=== PATIENT | female | born 1960 | race Caucasian/White ===

== ENCOUNTER → 2021-07-25 | Outpatient (CLI) | payer OTHER, BC ==
[~2021-07-25] MED LIST: BIOTIN5000 MC1 SUBLING; CALCIUM + VITA1 EAC2 PO; IBUPROFEN 200200 M1 PO; NORCO 5-325 TA1 EACH PO; OMEPRAZOLE20 M1 PO; SINGULAIR 10 MG10 M1 PO; SYNTHROID50 MCG PO; TRAZODONE HCL100 MG PO; VOLTAREN-XR100 MG PO; WELLBUTRIN XL300 MG PO; WOMEN'S MULTI200 MCG PO
== END ==
LOC: M.LAB 08:12
PROVIDERS: ATTEND Orthopaedic Surgery
DX: Z01.812 Encounter for preprocedural laboratory examination (principal); Z20.822 Contact with and (suspected) exposure to COVID-19